=== PATIENT | male | born 1945 | race Caucasian/White ===

== ENCOUNTER 2019-07-07 16:44 | Inpatient (IN) | payer OTHER ==
[~2019-07-07] VITALS: Ht 157.5 cm; Wt 87.5 kg
[2019-07-07] MEDS ORDERED: ASPIRIN325 PO (19:29)
[2019-07-07] MEDS ORDERED: LIPITOR40 MG PO (19:29)
[2019-07-07] MEDS ORDERED: CALCIUM500 M1 PO (19:31)
[2019-07-07] MEDS ORDERED: SEROQUEL 50 MG50 M1 PO (19:32)
[2019-07-07] MEDS ORDERED: NICOTINE TRANSD21 M1 TRANSDERM (19:32)
[2019-07-07] MEDS ORDERED: BRILINTA90 MG PO (19:33)
[2019-07-07] MEDS ORDERED: ALBUTEROL2.5 MG/0.5 INH (19:34)
[2019-07-07 21:00] VITALS: BP 125/67
--- NOTE | 2019-07-08 05:21 | NUR ---
PT ARRIVED AT 2014 VIA W/C TRANSPORT FROM [facility]. SON ARRIVED SHORT TIME LATER. PT ALERT AND ORIENTED BUT CAN BE FORGETFUL. HX OF CVA, DYSARTHRIA. IMPULSIVE AND CAN GET ANXIOUS OR IRRITABLE. WHEN ARRIVED PT WAS UP WALKING AROUND ROOM AND YOUNG. NEEDED REMINDING TO NOT GET UP WITHOUT CALLING. SUPRAPUBIC CATHETER IN PLACE BUT SOME BLOOD NOTED IN URINE. [facility] DUE TO URETHRAL OBSTRUCTION. DENIED ANY PAIN. TOOK PILLS WHOLE WITHOUT ISSUES. SON CONCERNED PT REFUSES TO EAT ANY HOSPITAL FOOD. ADMISSION ASSESSMENT COMPLETED. DISCUSSED THERAPIES AND PT WAS ORIENTED TO . SLEPT WELL MOST OF THE NIGHT. CALL LIGHT IN REACH AND BED ALARM ON.
[2019-07-08 08:30] VITALS: BP 115/52
[2019-07-08 11:27] LABS: HEMATOCRIT 36.7 % (42.0-52.0); HEMOGLOBIN 12.7 gm/dL (14.0-18.0); MCH 34.7 pg (26.0-34.0); MCHC 34.5 g/dL (28.0-37.0); MCV 100.7 fL (80.0-100.0); MPV 9.7 fl. (7.2-11.1); RBC 3.65 mil/uL (4.50-6.00); RDW-CV 12.8 % (10.5-14.5); WBC 7.4 thou/uL (4.0-11.0)
[2019-07-08 11:31] LABS: CALCIUM 8.9 mg/dL (8.5-10.1); CREATININE 1.3 mg/dL (0.6-1.3); POTASSIUM 4.1 mmol/L (3.5-5.1)
--- NOTE | 2019-07-08 16:00 | NUR ---
PT SON HERE AND STATES PT HAS BECOME MORE FORGETFULL SINCE STROKE AND IS VERY PICKEY ABOUT FOODS HE WILL EAT. PT HAS PARTICIPATED WITH THERAPIES WITH QUEING AND COAXING. SUPRAPUBIC TO ABDOMEN WITH TEA COLOR URINE TO DRAINAGE BAG. PT HAS BEENEDUCATED ON USE OF BED AND CHAIR ALARMS.PT AMBULATES WITH ASSIST OF 1,GAITBELT AND MIN ASSIST.PT CAN BE FORGETFULL. PT HAS POOR APPETITE AND IS PICKEY ABOUT FOODS. SON HAS BROUGHT IN LUNCH AND SNACKS FOR PT.PT WILL EAT CHOCOLATE MILK AND ICE CREAM,LIST AT DESK.PT REMINDED TO CALL FOR ANY ASSIST.
[2019-07-08 20:04] VITALS: BP 117/80
--- NOTE | 2019-07-09 05:10 | NUR ---
ASSUMED PT CARE AT 1930, PT POLITE AND COOPERATIVE WITH CARES. HX OF CVA. DENIES PAIN. TAKES PILLS WHOLE WITH WATER WITHOUT DIFFICULTY. PT IS LEGALLY BLIND. SUPRAPUBIC CATHETER DRAINING HALEY URINE. PT SLEPT WELL OVERNIGHT. USES CALL LIGHT APPROPRIATELY. BED ALARM ON FOR SAFETY. HOURLY ROUNDING IN PROGRESS, WILL CONTINUE TO MONITOR.
[2019-07-09 07:35] VITALS: BP 116/47
--- NOTE | 2019-07-09 16:00 | NUR ---
PT CALLS FOR ASSIST AT TIMES BUT HAS BEEN IMPULSIVE AND AMBULATED TO BATHROOM DRAGING LEMA BAG AND IS REMINDED TO CALL FOR ASSIST AND BE AWARE OF WHERE SUPRAPUBIC BAG IS. PT REFUSES TO EAT HOSPITAL MEALS AND EATS SNACKS SON HAS BROUGHT IN. SON HAS BROUGHT IN CHICKEN STRIPS AND TACOBELL TODAY.PT IS APHASIC AND WORD SEARCHES OFTEN.PT PLANS TO GO HOME FOR HIS BIRTHDAY THIS WEEK. DISCUSSED TEAM MEETINGS WITH PT AND SON. SON PLANS TO HAVE [facility] FOR HOME HEALTH AT DISCHARGE. PT ALSO ONLY DRINKS PEPSI, URINE IS DARK HALEY WITH SEDIMENT.PT HAS POOR VISION AND HAS BEEN IN DINNINGROOM TO WATCH/LISTEN TO FOOTBALL GAMES THIS AFTERNOON.CHAIR ALARM AND BED ALARMS IN USE.
[2019-07-09 20:00] VITALS: BP 123/45
--- NOTE | 2019-07-10 05:05 | NUR ---
ASSUMED PT CARE AT 1930. PT ALERT AND ORIENTED, COOPERATIVE WITH CARES. HX OF CVA. PT GIVEN ZOLPIDEM AT HS PER REQUEST. SLEPT WELL MOST OF NIGHT UNTIL 0300 WHEN HE SAT UP ON THE SIDE OF BED TO EAT CANDY. PT BACK TO SLEEP ONLY TO SET OFF BED ALARM AGAIN AT 0500, EATING SNACK CAKES. SUPRAPUBIC CATHETER DRAINING HALEY URINE. CALL LIGHT AND FREQUENTLY USED ITEMS IN REACH. HOURLY ROUNDING IN PROGRESS, WILL CONTINUE TO MONITOR.
[2019-07-10 10:30] VITALS: BP 122/58
[2019-07-10] MEDS ORDERED: ASA81BEC PO (11:01)
--- NOTE | 2019-07-10 14:05 | NUR ---
Nutrition: Pt admitted to rehab with CVA. H/o COPD, OBE, tobacco abuse, probable dementia, HTN. Pt seemed somewhat confused. Very grumpy about not being able to go home yet. He stated he doesn't eat hospital food, but he admitted to liking the ice creams. Multiple candy, Pepsi trash in room. Offered an altrnative menu for pt - he refused. BG 168. WT: 192#. RD helped to ease pt's frustrations. Encouraged him to call with any concerns. Low nutrition risk.
--- NOTE | 2019-07-10 15:27 | NUR ---
ASSUMMED CARE OF PT AT 0730, PT ALERT, IMPULSIVE, SETTING OFF ALARMS AT TIMES,PT TRANSFERS WITH GB AND SBA, PT TALKED WITH DR DORANTES THIS AM AND STATES IF HE WORKS HARD AT THERAPY TODAY HE CAN GO HOME TOMMORROW, PT INFORMED THAT IT DEPENDS IF THERAPIES FEEL HE IS SAFE, PT STATES HE IS GOING HOME NO MATTER WHAT, ASKING TO TALK WITH SOMEONE ABOUT HIS SITUATION, MESSAGE LEFT FOR NATHALIE ED, AWAITING RESPONSE, DID USE CALL LIGHT SHIFT PROGRESSED, PUT PARTY PLAN SELLING DISTRIBUTOR LIGHT SEVERAL TIMES TO STATE HE WAS GOING HOME TOMMORROW, PT RE EDUCATED BUT HE STATES HIS MIND IS SET, SON INFORMED BY QUILL FIXER OF SITUATION, PT REFUSES TO SIT IN CHAIR WILL ONLY SIT ON EDGE OF BED, EXPLAINED TO PT THIS WAS NOT A SAFE PLACE TO SIT BUT PT REFUSES SITTING IN CHAIR, PT DENIES PAIN, PT IGNORES SUPRA PUBIC CATH AND IT BECOMES TANGLED AROUND HIS LEGS, DRAINING CLOUDY URINE WITH SEDIMENT, PT REFUSES TO EAT ANY HOSPITAL FOOD EXCEPT FOR CHOCOLATE ICE CREAM, EATING "JUNK" FOOD THAT SON BROUGHT IN FROM HOME, SMALL INCONTINENT STOOL, PARTICIPATED IN ALL THERAPIES, ASSESSMENT COMPLETE, WILL CONTINUE TO MONITOR.
--- NOTE | 2019-07-10 17:10 | NUR ---
SW spoke with pt son to complete initial assessment, introduce self, and SW role and to discuss safe dc planning. SW explained pt expressing pt to dc and pt not working well with therapies this day due to pt wanting to be able to dc today or tomorrow. Pt son explained that pt son is unable to "talk his dad into staying in the hospital much longer" but that pt son does agree with pt receiving more therapies prior to pt dc home. Pt son said that he would like to be able to take pt out on a pass or out of the hospital for a while for pt birthday tomorrow. SW discussed with team, arranged family training for 8 am Wednesday and left a message with pt insurance company for approval for pass as well. SW met with pt to provide DPOA/AD info, pt was not sure about wanting to complete this. Pt son said he would discuss with pt as well tomorrow but that pt son had not previously or ever been DPOA. Pt lives at home alone. Pt son shared that pt is legally blind, pt's memory was poor prior to CVA, ADLs and mobility functionality were issues prior to CVA as well. Pt son explained pt would basically eat, watch tv, take naps and that was pt normal routine. Pt son did the grocery shopping and other finances for pt. Pt son discussed being about to set [facility] for [facility] at home at dc. Pt son also said that he might be able to arrange for pt not to be alone at dc but was not specific as to who that would be as pt son does work during the day. SW to continue to follow to assist with safe dc planning.
[2019-07-10 20:00] VITALS: BP 136/86
--- NOTE | 2019-07-11 05:12 | NUR ---
ASSUMED PT CARE AT 1930. PT ORIENTED TO SELF AND SITUATION. PT QUITE ANIMATED AT SHIFT CHANGE TALKING IN CIRCLES ABOUT WHEN WOULD HE GET TO SEE DR. DORANTES AGAIN, WHEN COULD HE GO HOME AND ABOUT HIS SON BECOMING HIS DPOA. PT FINALLY CALMED ENOUGH TO TAKE EVENING MEDS WHICH INCLUDED THE AMBIEN HE REQUESTED. PT SLEPT WELL OVERNIGHT. AWAKENED ONCE AT [address] DORANTES. THIS RN EXPLAINED TO PT IT WAS ONLY 0230 IN THE MORNING AND THAT HE NEEDED TO GO BACK TO SLEEP WHICH PATIENT DID. PT USED THE CALL LIGHT APPROPRIATELY TO INITIATE THE FOREGOING ENCOUNTER. THUSFAR THIS SHIFT PT HAS NOT GOTTEN OUT OF BED OR SET OFF THE BED ALARM. SUPRA PUBIC CATHETER TO DD, DRAINING DARK HALEY URINE WITH SEDIMENT. CALL LIGHT IN REACH, BED ALARM ON FOR SAFETY. HOURLY ROUNDING IN PROGRESS, WILL CONTINUE TO MONITOR.
[2019-07-11 08:00] VITALS: BP 95/46
--- NOTE | 2019-07-11 15:04 | NUR ---
SW called pt son to follow up on yesterday's conversations regarding pass and pt son went to work so SW explained that the person who would be responsible for pt during pass needed to be the person who was with pt during the pass. Pt son expressed understanding and agreement became that pt would not go on the pass after all. Pt son expressed frustration with SW about being able to complete DPOA with pt, SW was unavailable at the time pt son was available and then he had to leave for work. JYOTI explained SW could complete without pt son there but pt son said he took the DPOA and he will decide whether or not they will complete in hospital or elsewhere. SW to continue to follow to assist with safe dc planning.
--- NOTE | 2019-07-11 16:47 | NUR ---
ASSUMMED CARE OF PT AT 0730, PT ALERT, FORGETFUL, UP WITH SBA, GB, PT REFUSES TO EAT ANY FOOD OFF OF HOSPITAL TRAYS, WILL ONLY EAT CHOCOLATE ICE CREAM, SON AWARE AND STATES HIS DAD ONLY EATS JUNK FOOD, HE WILL BRING SOME IN NEXT TIME HE VISITS, PT OFFERED SEVERAL FOODS THAT HIS SON STATED HE MIGHT EAT SUCH CHIPS, PEACHES ETC BUT PT REFUSES, PT DOES DRINK ONLY PEPSI AND REFUSES ANY OTHER BEVERAGES, SUPRAPUBIC CATH DRAINING DARK HALEY URINE WITH SEDIMENT ONLY 150 CC OUT SO FAR THIS SHIFT, BP 95/46 THIS AM, PT DENIES DIZZINESS, PT EDUCATED ON INCREASING FOOD AND FLUID INTAKE DUE TO LOW BP BUT PT REFUSES, PT FREQUENTLY ASKS WHEN HE CAN GO HOME, AND DOES NOT UNDERSTAND THE REASONS HE IS HERE, PARTICIPATED IN ALL THERAPIES, HOURLY ROUNDING COMPLETED, ASSESSMENT COMPLETE, WILL CONTINUE TO MONITOR.
[2019-07-11 19:50] VITALS: BP 136/71
--- NOTE | 2019-07-12 02:45 | NUR ---
ASSUMED CARE @ 1925-07[birth year]-.SITS EDGE OF BED VISITING W/ SON.SUPRAPUBIC CATHETER IN PLACE & PATENT.BRP W/ SON @ 1934.HAD MOD BM.RN ASSISTYED TO BED @ 2009.SLEEPS ON HIS ABDOMEN.BED ALARM PUT ON @ 2009.C/O GI UPSET DUE TO HOT DOG BROUGHT BY SON.REUSED PRN MYLANTA WHEN OFFERED.PRN AMBIEN 5 MG ORAL GIVEN @ 2011-PER PT'S REQUEST.BP @ 0800-95/46.BP @ 1950-136/71.SAT EDGE OF BED @ 0230 TO DRINK PEPSI.WENT BACK TO BED @ 0245.ON HOURLY ROUNDS.
--- NOTE | 2019-07-12 05:57 | NUR ---
SAT EDGE OF BED 2ND TIME @ 0430 TO DRINK PEPSI.SLEEPING SINCE 2200 & SLEPT GOOD ALL NIGHT.TOOK ONE HOT DOG,PEANUT BUTTER CUP & PEPSI HS SNACKS.
[2019-07-12 08:00] VITALS: BP 100/72
--- NOTE | 2019-07-12 15:49 | NUR ---
PT HAS PARTICIPATED WITH THERAPIES AND IS ALERT BUT FORGETFULL. PT DOES NOT UNDERSTAND WHY HE IS NOT TO BE DISCHARGED TODAY. ,CASE MANAGEMENT AND PT'S SON HAVE TALKED TO PT. LUIS ANTONIO HAS SPOKEN TO SON ABOUT CONTINUED THERAPY. PT SLIGHTLY AGGITATED WITH DISCHARG BEING POSPONED.PT AMBULATES IN ROOM NOT CALLING FOR ASSSIST WITH STEADY GAIT. SUPRAPUBIC INTACT TO LOW PELVIC AREA WITH YELLOW URINE WITH SEDIMENT PRESENT. PT DENIES PAIN AND IS REORIENTATED TO REHAB PROGRAM.
--- NOTE | 2019-07-12 16:45 | NUR ---
JYOTI and Dr Holt met with pt after team conference to provide team conference summary and plan for pt to remain on rehab unit another week. Pt was not in agreement with plan and wanted to be able to dc much sooner. Dr Holt explained pt making progress in therapies but team determined pt not ready to dc home alone due to pt cognition, problem solving and memory deficits. All barriers to pt dc home at this time; pt would be left alone during the day and team does not feel this would be safe. Dr Holt explained to pt that if pt and pt son agree to take pt home and care for pt and needs, then pt could dc. SW gave pt son phone number to Dr Holt to discuss plan. SW spoke with pt son at length about plan and the barriers to dc and how pt is functioning with all therapies. Pt son agreed pt needed to continue therapies and said he would talk with pt about continuing inpt rehab. SW to continue to follow to assist with safe dc planning.
[2019-07-12 20:00] VITALS: BP 146/73
--- NOTE | 2019-07-13 00:50 | NUR ---
ASSUMED CARE @ .SITS EDGE OF BED W/ SUPRAPUBIC CATHETER IN PLACE & PATENT.WANTS PRN AMBMAURICIO NOW.INFORMED IT'S TOO EARLY TO HAVE IT @ 1924.WILL GIVE @ 1999 W/ OTHER HS MEDS.PRN AMBIEN 5 MG ORAL GIVEN @ 2002.SITS EDGE OF BED TO TAKE HS MEDS.LIES ON HIS ABDOMEN @ NIGHT.ON HOURLY ROUNDS.MANAGER CLIENT SUPPORT DOING ODD HOUR ROUNDS.
--- NOTE | 2019-07-13 05:02 | NUR ---
SLEEPING SINCE 2119 & SLEPT GOOD ALL NIGHT.TOOK PEANUT BUTTER CUPS W/ PEPSI HS SNACKS.AWAKE @ 0440 & SAT EDGE OF BED TO DRINK PEPSI & EAT PEANUT BUTTER CUPS.
[2019-07-13 07:53] VITALS: BP 107/50
--- NOTE | 2019-07-13 11:19 | NUR ---
Dr Holt communicated with JYOTI that pt son and team agreed upon pt being able to go home with son and assistance at all times. JYOTI spoke with Marely at the [facility] to clarify in home assistance; most approved and available is 11 hrs/week and application is with training program manager at [facility] for adult day care program; no resource through [facility] for 24/7 care. [facility] using [email or web address] for in home assist and could be used for HH RN and ST as well. JYOTI spoke with pt son Yaya to confirm this plan and reiterated that team is recommending 24/7 care, pt son said he changed his work shift to be able to be with pt during the day since day program will not be able to begin right away. Pt Dr at [facility] is Dr Marcia Amezcua ph [phone] fax [phone]. JYOTI to continue to follow to assist with finalizing safe dc plan.
--- NOTE | 2019-07-13 16:31 | NUR ---
PT ALERT AND ORIENTATED TO SELF AND SURROUNDINGS. PT DENIES PAIN BUT HAS FEELING OF NEED TO VOID. SUPRAPUBIC CATHETER WITH CLEAT YELLOW URINE TODAY. LEMA BAG WAS CHANGED DUE IT BEING PULLED FROM CATHETER THIS AM. PT CONTINUES TO REFUSE TO EAT HOSPITAL FOODS BUT WILL EAT CHOCOLATE ICE CREAM. PT PLANS TO DISCHARGE TO HOME TOMORROW WITH SON.
[2019-07-13 20:00] VITALS: BP 145/76
--- NOTE | 2019-07-14 05:18 | NUR ---
ASSUMED PT AT 1930. PT ALERT AND ORIENTED TO SELF AND SURROUNDINGS. PT DENIES PAIN. SUPRAPUBIC CATHETER TO DD, DRAINING CLEAR YELLOW URINE. PT TO SLEEP EARLY WITH AMBIEN PER PT REQUEST. PT AWAKENED TWICE OVERNIGHT SETTING OFF BED ALARM TO SIT ON SIDE OF BED AND EAT SNACKS AND DRINK SODA. PT PUT SELF BACK TO BED. BED ALARM ON FOR SAFETY. PT SON CALLED AND SAID HE WOULD BE HERE THIS AM FOR FAMILY TRAINING. PT TO DISCHARGE HOME TODAY. HOURLY ROUNDING IN PROGRESS, WILL CONTINUE TO MONITOR.
[2019-07-14 08:22] VITALS: BP 110/70
--- NOTE | 2019-07-14 14:34 | NUR ---
ASSESSMENT COMPLETE. PT ANXIOUS MOST OF THE DAY WITH DISCHARGE PLAN. PT REFUSING BED AND CHAIR ALARMS AND REFUSED TO USE CALL LIGHT. PT AMBULATES TO NURSES STATION. PT IS ON ROOM AIR, VSS. NICOTINE PATCH CHANGED THIS MORNING. SUPRAPUBIC CATH IN PLACE. SEE ASSESSMENT AND VITALS FOR OTHER DETAILS. CALL LIGHT WITHIN REACH, WILL CONTINUE PLAN OF CARE
[2019-07-14] MEDS ORDERED: AMBIEN5 MG PO (15:25)
[2019-07-14 15:26] VITALS: BP 110/70
[2019-07-14 15:35] VITALS: BP 110/70
--- NOTE | 2019-07-14 16:36 | NUR ---
Pt to dc home today with son assist and [facility] to follow. SW spoke with pt son about pt dc plan and 15/03 assistance; pt son confirmed this with Dr Holt that pt would have care/assistance and supervision at all times. SW discussed HH [facility] with pt son through [facility] as well and SW faxed referral and orders to pt/family preference of [facility]. Pt son to provide pt ride home tonight at around 7:15 pm.
[2019-07-14 19:11] VITALS: BP 110/70
== END 2019-07-14 19:10 | disposition home health service (06) | DRG 56 ==
LOC: M.REH 16:44
PROVIDERS: ADMIT Physical Medicine & Rehabilitation
DX: I69.351 Hemiplegia and hemiparesis following cerebral infarction affecting right dominant side (principal); I63.9 Cerebral infarction, unspecified; N13.8 Other obstructive and reflux uropathy; R47.01 Aphasia; J44.9 Chronic obstructive pulmonary disease, unspecified; E78.5 Hyperlipidemia, unspecified; I10 Essential (primary) hypertension; F17.210 Nicotine dependence, cigarettes, uncomplicated; E66.01 Morbid (severe) obesity due to excess calories; R13.10 Dysphagia, unspecified; N40.1 Benign prostatic hyperplasia with lower urinary tract symptoms; R47.1 Dysarthria and anarthria; D64.9 Anemia, unspecified; K59.00 Constipation, unspecified; F03.90 Unspecified dementia, unspecified severity, without behavioral disturbance, psychotic disturbance, mood disturbance, and anxiety; Z53.29 Procedure and treatment not carried out because of patient's decision for other reasons; Z68.35 Body mass index [BMI] 35.0-35.9, adult; Z88.0 Allergy status to penicillin; Z87.440 Personal history of urinary (tract) infections